=== PATIENT | female | born 1940 | race Caucasian/White ===

== ENCOUNTER 2017-01-01 09:03 | Outpatient (CLI) | payer MEDICARE, OTHER ==
[2016-01-08 19:30] VITALS: BP 168/64
[2017-01-01 09:18] LABS: BASOPHILS % 0.7 (0.0-1.5); LYMPHOCYTES # 1.1 # k/uL (0.6-4.0); MEAN CORPUSCULAR HEMOGLOBIN 29.4 pg (28.0-34.0); MONOCYTES # 0.4 # k/uL (0.0-0.9); MONOCYTES % 7.6 % (0.0-11.0); NEUTROPHILS # 3.4 # k/uL (1.4-7.7)
[2017-01-01 09:47] LABS: eGFR (African) > 60; eGFR (Non-African) > 60
== END 2017-01-01 09:05 ==
LOC: LAB 09:03
PROVIDERS: ATTEND Family Medicine
DX: R68.83 Chills (without fever) (principal); I10 Essential (primary) hypertension; E03.9 Hypothyroidism, unspecified
CPT/HCPCS: 36415; 80053; 84443; 85025

== ENCOUNTER → 2017-10-15 | Outpatient (CLI) | payer MEDICARE, OTHER ==
[2016-01-08 19:30] VITALS: BP 168/64
== END ==
LOC: LAB 07:58
PROVIDERS: ATTEND Family Medicine
DX: E03.9 Hypothyroidism, unspecified (principal)
CPT/HCPCS: 36415; 84443

== ENCOUNTER 2018-02-21 08:11 | Outpatient (CLI) | payer MEDICARE, OTHER ==
[2016-01-08 19:30] VITALS: BP 168/64
--- NOTE | 2018-02-21 10:30 | Diagnostic Imaging Report ---
CLEO PAZ [facility] [address] [facility] [address] [place], [place]. [address] Report Submission Date: Feb 21, 2018 9:13:24 AM CDT Patient Study Name: LENIN ANGUIANO Date: Feb 21, 2018 8:28:43 AM CDT Modality Type: DX Gender: F Description: SPINE : 42 Institution: [facility] Physician: CLEO PAZ Examination: Plain film lumbar spine History: PT C/O LOW BACK PAIN THAT RADIATES INTO THE LEFT HIP AND LEFT HIP WEAKNESS X 6 MONTHS. (Hx) / ITS.REASON low back pain with neurogenic claudication (DICOM Hx) Findings: 3 views of the lumbar spine demonstrates extensive osteopenia. Endplate compression. Osteophyte formation. Curvature to the left. Atherosclerotic disease involving the abdominal aorta. Impression: Osteopenia, curvature, and extensive degenerative changes. If patient is experiencing neurologic symptoms, consider obtaining MRI lumbar spine to further evaluate. Electronically signed on Feb 21, 2018 9:13:24 AM CDT by: Conrado RAGLAND
== END 2018-02-21 08:12 ==
LOC: RAD 08:11
PROVIDERS: ATTEND Family Medicine
DX: M48.062 Spinal stenosis, lumbar region with neurogenic claudication (principal)
CPT/HCPCS: 72100

== ENCOUNTER 2018-06-07 14:04 | Emergency (ER) | payer MEDICARE, OTHER ==
[2018-06-07 14:20] VITALS: BP 174/104
--- NOTE | 2018-06-07 14:29 | ED Physician Documentation ---
General Adult - HISTORIAN Historian: patient - HPI Stated Complaint: R great toe pain Chief Complaint: Lower Extremity Injury Additional Information: On May 24 patient has right great toenail removed by Dr Ng. Seemed to be doing well until several days ago when it started to cause her some pain. Has become swollen, red and tender to touch. Patient denies any trauma. has had some drainage from it. Timing: still present - ROS CONST: no problems. denies: fever, chills - PAST HX Past History: hypertension, other (DARLEEN, ) Other History: other (hypothyroidism, infiltrating breat ductal carcinoma, mild MR, macular degeneration. ) Surgeries/Procedures: other (cataract, , appendectomy, tonsilectomy) Allergies/Adverse Reactions: Allergies Allergy/AdvReac Type Severity Reaction Status Date / Time No Known Drug Allergies Allergy Verified 06/07/18 14:21 Home Medications: Ambulatory Orders Medication Instructions Recorded Cephalexin [Keflex] 500 mg PO TID #30 capsule 06/07/18 - SOCIAL HX Smoking History: non-smoker Alcohol Use: none Drug Use: none - FAMILY HX Family History: Yes - VITAL SIGNS Vital Signs: Vital Signs Temp Pulse Resp BP Pulse Ox 98.1 F 101 H 17 174/104 95 06/07/18 14:14 06/07/18 14:14 06/07/18 14:14 06/07/18 14:14 06/07/18 14:14 - REVIEWED ASSESSMENTS Nursing Assessment Reviewed: Yes Vitals Reviewed: Yes General Adult Physical Exam - PHYSICAL EXAM GENERAL APPEARANCE: mild distress RESPIRATORY: no resp distress, chest non-tender, breath sounds normal. No: wheezes, rales, rhonchi CVS: reg rate & rhythm, heart sounds normal, equal pulses, no murmur SKIN: warm/dry, mottled, other (some erythema, mild swelling and tenderness to the right great toe) NEURO: oriented X3, mood/affect nml, cognition normal Discharge Clincal Impression: Cellulitis of toe of right foot Prescriptions: Cephalexin [Keflex] 500 mg PO TID #30 capsule Referrals: Berto Ng MD [Primary Care Provider] - 2 Days Additional Instructions: Continue to soak foot in warm soapy water or Epsom salt. Take cephlexin as directed three times a day. Return to the clinic on Wednesday, June 15 at 8: 30 in the morning. If symptoms get worse to call the clinic for further evaluation. Condition: Stable Disposition: 01 HOME, SELF-CARE Decision to Admit: NO Date of Decison to Admit: 06/07/18 Decision Time: 14:32
== END 2018-06-07 14:45 | disposition home or self-care (01) ==
LOC: ED 14:04
DX: L03.031 Cellulitis of right toe (principal)
CPT/HCPCS: 99282

== ENCOUNTER 2019-01-12 09:20 | Emergency (ER) | payer MEDICARE, OTHER ==
--- NOTE | 2019-01-12 10:01 | ED Physician Documentation ---
Fall - HISTORIAN Historian: patient - HPI Stated Complaint: back pain Chief Complaint: Fall Additional Information: Patient is a 78-year-old female who presents to the ER via [facility] with c/o left shoulder pain s/p fall 4 days ago (Wednesday). Patient states that she was getting out of bed Wednesday morning and got tangled in her linens and fell from a standing position- her brother helped her up. She c/o left shoulder discomfort- she is able to move are without restriction. She has a walker at home but she does not use it. She walks independently. Onset: days ago (Fell on Wednesday morning (4 days ago)) Where: home Context: tripped (got tangled in bed linens), lost balance. denies: fainted r: mild Associated Symptoms:: denies: no loss of consciousness Location of Pain/Injury: L shoulder Injury to Right Extremity: none Injury to Left Extremity: shoulder Further Comments: no - ROS CONST: no problems NEURO: denies: dizziness MS/SKIN/LYMPH: denies: weakness, neck pain, back pain EYES/ENT: none CVS/RESP: none GI/: denies: nausea, vomiting - PAST HX Past History: other (Hypothyroid, hormone replacement, 2 biopsies from breast) Immunizations: UTD. denies: influenza, pneumovax Allergies/Adverse Reactions: Allergies Allergy/AdvReac Type Severity Reaction Status Date / Time No Known Drug Allergies Allergy Verified 01/12/19 09:40 - SOCIAL HX Smoking History: non-smoker Alcohol Use: none Drug Use: none - FAMILY HX Family History: no significant history - VITAL SIGNS Vital Signs: Vital Signs Temp Pulse Resp BP Pulse Ox 97.9 F 83 16 174/101 92 01/12/19 09:20 01/12/19 09:20 01/12/19 09:20 01/12/19 09:20 01/12/19 09:20 - REVIEWED ASSESSMENTS Nursing Assessment Reviewed: Yes Vitals Reviewed: Yes ED Results Lab/Radiology - Radiology Radiology Impressions: Examination: Plain film left shoulder History: LEFT SHOULDER, PAIN IN SHOULDER AFTER FALL Comparison exams: None provided Findings: 3 views of the left shoulder demonstrates osteopenia. Articular degenerative changes. No evidence for fracture or dislocation. No soft tissue abnormality Impression: Osteopenia and degenerative changes. No acute appearing cortical abnormality. Electronically signed on Jan 12, 2019 10:59:52 AM ACADEMIC GUIDANCE SPECIALIST by: Conrado Crowe - Orders Orders: ED Orders Category Date Time Status SHOULDER 2 VIEWS OR MORE [RAD] Stat Exams 01/12/19 Ordered Fall Physical Exam - Physical Exam General Appearance: no acute distress, alert Head: non-tender, no swelling, no obvious injury Neck: non-tender, painless ROM, trachea midline Eye: JD, EOMI, lids & conjunct. nml ENT: nml external inspection, no oral injury, airway nml Resp/CVS: chest non-tender, breath sounds nml, no resp. distress, heart sounds nml Abdomen: soft, normal bowel sounds, non-tender Neuro: oriented x3, CN's nml as tested, sensation nml, motor nml, paper twister nml, paper twister symmetrical Skin: color nml, warm, dry Back: normal inspection Extremities: hips non-tender, nml ROM, nml color/temp Joint: joints nml, nml ROM - Amanda Coma Score Eyes Open: Spontaneous Speech: Oriented Motor: Obeys Commands Discharge Clincal Impression: Sprain of shoulder, left Referrals: Berto Ng MD [Primary Care Provider] - 2 Days Additional Instructions: Uses walker May use heating pad to shoulder May use Icy Hot for muscle pain Follow up with PCP next week if no improvement Condition: Good Disposition: 01 HOME, SELF-CARE Decision to Admit: NO Decision Time: 14:13
[2019-01-12 11:16] VITALS: BP 126/81
--- NOTE | 2019-01-13 03:59 | Diagnostic Imaging Report ---
YANET ORELLANA [facility] [address] [facility] [address] [address] Report Submission Date: Jan 12, 2019 10:59:52 AM SHOPPING INVESTIGATOR Patient Study Name: LENIN ANGUIANO Date: Jan 12, 2019 9:52:56 AM SHOPPING INVESTIGATOR Modality Type: DX Gender: F Description: SHOULDER 2 VIEWS OR MORE : 42 Institution: [facility] Physician: YANET ORELLANA Examination: Plain film left shoulder History: LEFT SHOULDER, PAIN IN SHOULDER AFTER FALL Comparison exams: None provided Findings: 3 views of the left shoulder demonstrates osteopenia. Articular degenerative changes. No evidence for fracture or dislocation. No soft tissue abnormality Impression: Osteopenia and degenerative changes. No acute appearing cortical abnormality. Electronically signed on Jan 12, 2019 10:59:52 AM SHOPPING INVESTIGATOR by: Conrado RAGLAND
== END 2019-01-12 11:08 | disposition home or self-care (01) ==
LOC: ED 09:20
DX: S43.402A Unspecified sprain of left shoulder joint, initial encounter (principal); W01.0XXA Fall on same level from slipping, tripping and stumbling without subsequent striking against object, initial encounter; Y93.89 Activity, other specified; Y92.003 Bedroom of unspecified non-institutional (private) residence as the place of occurrence of the external cause
CPT/HCPCS: 73030; 99282; 99283

== ENCOUNTER 2019-07-24 14:00 | Outpatient (CLI) | payer MEDICARE, OTHER | END 2019-07-24 14:03 | LOC: LABRHC 14:00 | PROVIDERS: ATTEND Family Medicine | DX: E03.9 Hypothyroidism, unspecified (principal) | CPT/HCPCS: 84443 ==

== ENCOUNTER 2019-09-27 17:53 | Outpatient (CLI) | payer MEDICARE, OTHER | END 2019-09-27 17:58 | LOC: LAB 17:53 | PROVIDERS: ATTEND Family Medicine | DX: E03.9 Hypothyroidism, unspecified (principal) | CPT/HCPCS: 84443 ==